=== PATIENT | female | born 2005 | race Caucasian/White ===

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

== ENCOUNTER → 2025-01-26 13:26 | Outpatient (BNVA) | payer BC, MEDICAID, SELFPAY | PROVIDERS: PCP Family Medicine; Visit Provider Family Medicine | DX: N39.0 Urinary tract infection, site not specified (principal); R30.0 Dysuria | CPT/HCPCS: 81000; 87086 ==

== ENCOUNTER → 2025-01-29 10:12 | Outpatient (BNVA) | payer BC, MEDICAID, SELFPAY | PROVIDERS: PCP Family Medicine; Visit Provider Nurse Practitioner Women's Health | DX: Z34.01 Encounter for supervision of normal first pregnancy, first trimester (principal) | CPT/HCPCS: 84315; 84702; 85025; 86850; 86900 ==

== ENCOUNTER 2025-02-02 09:45 | Outpatient (CLI) | payer BC, MEDICAID, SELFPAY ==
[2025-02-02] VITALS (54 sets, daily range): BP systolic 88–121; BP diastolic 49–77; PULSE 72–100; RESP 16–18; TEMP 37–37.4; BMI 23.5
--- NOTE | 2025-02-02 09:48 | US_ITS ---
WS: [id number] Limited obstetrical ultrasound, less than 14 weeks. HISTORY: No heart tones in office. COMPARISON: 01/15/2025. Transabdominal and transvaginal imaging is performed. There is a single intrauterine gestation identified. [place]-rump length 2.7 cm corresponds to a gestation of 9 weeks and 4 days. Gestational sac is well- maintained. There is no cardiac activity identified within the embryo. No subchorionic hemorrhage or free fluid. US/US OB lmt with transvaginal IMPRESSION: Embryonic demise. No cardiac activity identified. [place]-rump length estimated age, 9 weeks and 4 days.
[2025-02-02 10:41] LABS: Hematocrit 34.0 % (36-47); Hemoglobin 11.60 g/dL (12.4-14.8); Mean Corpuscular HGB Conc 34.1 g/dL (30-55); Mean Corpuscular Hemoglobin 31.1 pg (27-33); Mean Corpuscular Volume 91.2 fl (85-98); Nucleated Red Blood Cells % 0 %; Platelet Count 195 10^3/cmm (157-399); Red Blood Count 3.73 10^6/uL (3.85-5.65); White Blood Count 4.55 10^3/uL (4.5-13.0)
[2025-02-02 10:55] LABS: HCG, Serum Qual Positive (Negative)
[2025-02-02 10:58] LABS: Alanine Aminotransferase 9 U/L (0-33); Albumin Level 4.9 g/dL (3.5-5.2); Alkaline Phosphatase 50 U/L (35-105); Anion Gap 16.5 (5-19); Aspartate Amino Transferase 17 U/L (0-32); Blood Urea Nitrogen 6 mg/dL (6-20); Calcium 9.6 mg/dL (8.5-10.5); Carbon Dioxide 23 mmol/L (22-29); Chloride 99 mmol/L (98-107); Globulin 2.9 g/dL (1.3-4.6); Glucose 86 mg/dL (65-115); Osmolality Calculated 277 mOsm/kg (285-295); Potassium 3.5 mmol/L (3.5-5.1); Sodium 135 mmol/L (136-145); Total Protein 7.8 g/dL (6.6-8.7)
--- NOTE | 2025-02-02 11:18 | P.HP_ITS ---
Providers/Chief Complaint 2 Primary Care Provider: Zohreh Del Castillo MD Chief Complaint: Missed [facility] History of Present Illness Laurie Bearden History of Present Illness The patient is a 19 year old female presenting with management of a missed . Missed : - The patient was found to have a missed five days ago. - An ultrasound on the showed a heartbeat of 174 bpm. - Recently, a heartbeat could not be detected via Doppler, which prompted an ultrasound. - The follow-up ultrasound last showed no heartbeat and size consistent with 9.3 weeks, while she should have been at 11 weeks gestational age. Review of Systems - Constitutional: Reports a low-grade fever over the past 24 hours. - Gastrointestinal: Reports nausea and vomiting. Physical Exam - Vitals: Vitals were noted to be normal. 98.2 - : heart tones were absent on Doppler evaluation. Results - Ultrasound: An ultrasound performed on the showed a heartbeat of 174 bpm. - Ultrasound: An ultrasound last confirmed no heartbeat and measurement of approximately 9.3 weeks, despite a gestational age of 11 weeks. Present Details : 1 Medications/Allergies Home Medications ?Medication ?Instructions ?Recorded ?Confirmed ?Last Taken ?Type vit 11-iron fum 28 mg 1 cap PO DAILY 12/30/24 02/02/25 Unknown History iron-folic acid 1 mg-om3 200 mg capsule amoxicillin 875 mg-potassium 1 tab PO BID 7 days #14 t abs 01/26/25 02/02/25 Unknown Rx clavulanate 125 mg tablet ibuprofen 800 mg tablet 800 mg PO Q8H #30 tabs 01/2902/02/25 Unknown Rx Allergies Allergy/AdvReac Type Severity Reaction Status Date / Time No Known Allergies Allergy Verified 02/02/25 07:45 PFSH MACHINE [facility] [employer] [facility] 2 PFSH: Medical History (Updated 02/02/25 @ 11:26 by Robert Ace MD) Psychiatric care No pertinent past medical history neghx: htn,dm,thyroid,dvt/pe PCP: Dr. Mccoy Tourettes syndrome Fracture of middle phalanx of left ring finger Surgical History Hx of tonsillectomy Family History Grandmother Cancer PGM with breast (late 60's)and colon cancer Grandfather Cancer MGF- colon cancer dx 60's Mother Hypertension Hyperlipidemia Denies family history of Ovarian cancer Diabetes Uterine cancer Thyroid disease Stroke Social History Smoking and tobacco/nicotine status: never used tobacco/nicotine Substance/Drug Use: never History History History 2 1 Term 0 Miscarriages/Ectopic Living Children [facility] Calculator 2 Estimated Delivery Date Method Current WG Current Estimate 08/19/25 LMP (Certain) 11w 5d Other Estimates 08/24/25 Ultrasound #1 11w 0d Vitals/I&O/Wt Last Vital Signs Pulse 75 02/02/25 11:12 BP 119/67 02/02/25 11:12 Weight last 48 hrs Weight 137 lb Physical Exam 2 : COMMON NORMALS: Yes normal external appearance, Yes normal appearance of the vagina and Yes No adnexal tenderness OB/EXTERNAL & SPECULUM: Deferred OB/external & speculum exam; no tissue noted in vagina, vaginal bleeding and vaginal discharge Data 02/02/25 10:10 02/02/25 10:10 Results Labs OB ([facility]): 2 Obstetrics US Today Blood Type O Positive Today Antibody Screen Negative 01/29/25 Hct, (36-47) 34.0 % L Today Hgb, (12.4-14.8) 11.60 g/dL L Today Rho(D) Type Rh positive Today Plt Count, (157-399) 195 10^3/cmm Today Ser , Semi-Qnt 79150.00 mIU/mL 01/29/25 HCG, Qual, (Negative) Positive H Today Micro Urine Specimen 01/26/25 A&P Assessment and plan 1. Missed with demise before 20 completed weeks of gestation: Plan: Assessment and Plan - A 19-year-old female presents for management options following a diagnosis of missed . - An an ultrasound last showed no heartbeat, with size at 9.3 weeks, while gestational age was 11 weeks. - Her vitals are normal. - Options including expectant management, medical management, and surgical management (D&C) were discussed. - Risks of D&C, including infection, uterine perforation, and incomplete evacuation were explained. - The patient initially considered a D&C but has decided to proceed with inpatient medical management. 1. Missed - The patient was presented with three management options: expectant management, medical management, and surgical evacuation via D&C. - The risks associated with a D&C procedure, such as infection, uterine perforation, and the possibility of retained products of conception, were discussed. - Medical management can be administered at home or in the hospital, with the inpatient option allowing for observation and administration of additional doses if needed. - After discussion, the patient has elected to proceed with inpatient medical . - Plans include admission to Labor and Delivery, obtaining labs including hCG quant and blood type to check Rh status, and performing an ultrasound prior to initiating medical management. PDMP PDMP Reviewed: Not Reviewed Attestations 2 Medical Necessity Statement*: Medical treatment vs surgical for missed needing admission to monitor for infection or profuse bleeding. Coding Level of Care Code Acute Code for Chg Fwd Diagnoses Missed with demise before 20 completed weeks of gestation O02.1
[2025-02-02] MEDS: fentaNYL 50 mcg/mL INJ 2mL IVP ×4 (16:56→20:51)
[2025-02-02] MEDS: ondansetron 2 mg/ML SDV 2 mL 4 MG IVP ×3 (16:56→21:08)
--- NOTE | 2025-02-02 20:30 | PC.NURSE ---
Patient's mother came to desk and reported she believes patient passed baby. This nurse along with Marco Antonio Bender went into patient's room, patient stated she believes she passed baby when she went to the bathroom. RN stepped into restroom to assess, tissue noted in hat on toilet, minimum bleeding at this time. This nurse stepped out of the room to notify doctor.
--- NOTE | 2025-02-02 20:55 | PC.NURSE ---
Dr. Ace presents to OB unit to assess patient, orders received for 10 units of oxytocine IM. Dr. Ace requests to assess patients bleeding. RN asked Dr. Ace if patient needed to be in bed with stirups, Dr. Ace agrees, states does not need speculum at this time but patient should be in stirups in case speculum needed. Patient transferred via wheelchair to OB [address] Ace assessed bleeding, request speculum at this time and patient placed in stirrups. After Dr. Ace removed tissue with instrument patient reports significant reduction in pain. Patient transferred back to room via wheelchair.
[2025-02-02] MEDS: oxytocin 10 unit/mL SDV 1 mL IM (21:05)
--- NOTE | 2025-02-02 22:16 | P.PN_ITS ---
MANAGER BOOK Subjective 2 Subjective: Interval history: Chief Complaint: Missed with medical management History of Present Illness: 19-year-old patient with diagnosis of mi ssed who underwent medical management with vaginal misoprostol (Cytotec). Patient received three doses of 800 micrograms vaginally at three-hour intervals, with the final dose administered less than one hour before expulsion. Complete expulsion of products of conception occurred in the shower following medication administration. Physical Examination: Patient presented for evaluation following reported expulsion. Pelvic examination revealed retained products of conception in the cervical os, which were removed without complication during the examination. Following removal, patient reported improved pain and decreased vaginal bleeding. Patient remained hemodynamically stable throughout the encounter with stable vital signs. Products of Conception: Examination of expelled tissue in the shower demonstrated a completely macerated fetus and placenta, consistent with missed . Vitals/I&O/Wt Last Vital Signs Temp 98.8 F 02/02/25 14:59 Pulse 86 02/02/25 22:14 Resp 17 02/02/25 20:51 BP 107/59 02/02/25 22:14 Weight last 48 hrs Weight 137 lb Physical Exam 2 Const: COMMON NORMALS: no acute distress and patient oriented x3 GENERAL APPEARANCE: cooperative ORIENTATION/CONSCIOUSNESS: Yes awake, Yes oriented to person, Yes oriented to place and Yes oriented to time HENMT: COMMON NORMALS: atraumatic and external ears normal HEAD & SCALP: n ormal to inspection and atraumatic EXTERNAL EAR: Yes external ears normal Eye: COMMON NORMALS: conjunctivae normal GENERAL EYE: appearance normal, both eyes and all related structures CONJUNCTIVA: Yes conjunctivae normal Lymph: LYMPHATIC: no lymphadenopathy noted Chest: CHEST: Yes Symmetrical chest wall rise Resp: COMMON NORMALS: normal respiratory effort Cardio: COMMON NORMALS: regular rate and regular rhythm RATE: regular rate RHYTHM: regular rhythm GI: COMMON NORMALS: Soft to palpation and non-tender AUSCULTATION: Yes normoactive bowel sounds PALPATION: Yes Soft to palpation : COMMON NORMALS: Yes normal external appearance, Yes normal appearance of the vagina and Yes normal appearance of the cervix (External os opened with visible pocs) SPECULUM EXAM - VAGINA: Yes vaginal bleeding SPECULUM EXAM - CERVIX: Yes Cervical os open, Yes Tissue present in the cervical os and Yes Cervical tenderness present BIMANUAL EXAM - VAGINA & UTERUS: Yes Cervical tenderness present OB/EXTERNAL & SPECULUM: Cervical os open and vaginal bleeding Neuro: COMMON NORMALS: patient oriented x3 SENSORIUM/ORIENTATION: Yes oriented to person, Yes oriented to place and Yes oriented to time Data 02/02/25 10:10 02/02/25 10:10 A&P Assessment and plan 1. Missed with demise before 20 completed weeks of gestation: Plan: Assessment and Plan: Missed with complete expulsion after medical management with misoprostol. The patient received vaginal misoprostol 800 mcg every three hours for three doses, which is consistent with evidence-based regimens for medical management of missed . Complete expulsion was achieved, with minor retained products in the cervical os successfully removed during examination. This outcome is consistent with the expected efficacy of misoprostol-based medical management. Prophylactic antibiotics: Doxycycline provided per protocol. Disposition: Patient will likely be discharged home tonight pending adequate pain control. Patient counseled on expected symptoms, warning signs requiring immediate medical attention (heavy bleeding, fever, severe pain), and follow-up instructions. Follow-up: Patient instructed to return for evaluation if concerning symptoms develop. Routine follow-up arranged as clinically indicated. Hcg in two days. PDMP PDMP Reviewed: Not Reviewed Attestations 2 Medical Necessity Statement*: Needs observation for pain control and bleeding assessment. Coding Level of Care Code Acute Code for Chg Fwd Diagnoses Missed with demise before 20 completed weeks of gestation O02.1
[2025-02-03] VITALS (30 sets, daily range): BP systolic 88–114; BP diastolic 48–59; PULSE 66–102; RESP 16; TEMP 36.7; O2SAT 99
== END 2025-02-03 07:35 | disposition home or self-care (01) ==
LOC: OPOB 09:45 → OBGYN 09:46
PROVIDERS: PCP Family Medicine; Visit Provider Obstetrics & Gynecology
DX: O02.1 Missed abortion (principal); Z3A.00 Weeks of gestation of pregnancy not specified
CPT/HCPCS: 36415; 76815; 76817; 80053; 84702; 84703; 85025; 86850; 86900; 88305; 96372; 99211; J2405; J3010; J7030; J9999

== ENCOUNTER → 2025-02-04 13:13 | Outpatient (BNVA) | payer BC, MEDICAID, SELFPAY | PROVIDERS: PCP Family Medicine; Visit Provider Obstetrics & Gynecology | DX: O02.1 Missed abortion (principal) | CPT/HCPCS: 84702 ==

== ENCOUNTER → 2025-02-07 16:58 | Outpatient (BNVA) | payer BC, SELFPAY | PROVIDERS: PCP Family Medicine; Visit Provider Family Medicine | DX: R30.0 Dysuria (principal) | CPT/HCPCS: 81000 ==

== ENCOUNTER → 2025-02-09 15:31 | Outpatient (BNVA) | payer BC, SELFPAY | PROVIDERS: PCP Family Medicine; Visit Provider Obstetrics & Gynecology | DX: Z09 Encounter for follow-up examination after completed treatment for conditions other than malignant neoplasm (principal); O03.9 Complete or unspecified spontaneous abortion without complication | CPT/HCPCS: 84702 ==

== ENCOUNTER → 2025-02-16 16:07 | Outpatient (BNVA) | payer BC, SELFPAY | PROVIDERS: PCP Family Medicine; Visit Provider Nurse Practitioner | DX: O02.1 Missed abortion (principal) | CPT/HCPCS: 84702 ==